=== PATIENT | male | born 1930 | race Caucasian/White ===

== ENCOUNTER 2019-05-31 14:07 | Inpatient (IN) | payer OTHER ==
--- NOTE | 2019-05-31 14:22 | ED ---
Neurological HPI - HPI Summary HPI Summary: This patient is a 42 year old male brought in by EMS presenting to [facility] with a chief complaint of possible stroke first noted 40 minutes ago. Nursing staff reports aphasia, slurred speech, and confusion. He lives in assisted living and states he first noted symptoms yesterday evening, his last known well. He states he noticed he was off when he kept missing the cue ball while playing billiards. He reports headache. 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 Patient arrived to ED 1409, seen by ED Provider and Neurologist Dr. Holden simultaneously at 1410, and taken to CT at 1411. Pt denies any fever, chills, erythema of eyes, sore throat, CP, SOB, cough, abdominal pain, N/V, dysuria, hematuria, myalgia, edema, rash, or dizziness. - History of Current Complaint Stated Complaint: NASIM MOORE Hx Obtained From: Patient, EMS Onset/Duration: Started minutes ago, Started days ago - Allergy/Home Medications Allergies/Adverse Reactions: Allergies Allergy/AdvReac Type Severity Reaction Status Date / Time Unable to Assess Allergy Verified 05/31/19 14:30 Home Medications: Home Medications Aspirin EC TAB* [Ecotrin EC Low Dose 81 MG*] 81 mg PO DAILY 05/31/19 [History Confirmed 05/31/19] Atorvastatin* [Lipitor*] 10 mg PO DAILY 05/31/19 [History Confirmed 05/31/19] Calcium Carbonate [Calcium] 1,000 mg PO DAILY 05/31/19 [History Confirmed ] Ferrous Sulfate TAB* 325 mg PO EVERY OTHER DAY 05/31/19 [History Confirmed 05/31] Levothyroxine TAB* [Synthroid TAB*] 37.5 mcg PO QAM 05/31/19 [History Confirmed 05/31/19] Metoprolol Tartrate TAB* [Lopressor TAB*] 25 mg PO BID 05/31/19 [History Confirmed 05/31/19] PMH/Surg Hx/FS Hx/Imm Hx Cardiovascular History: Reports: Hx Hypertension EENT History: Denies: Hx Deafness - Family History Known Family History: Positive: Unknown - Difficulty answering due to Aphasia/ Nasim Arnett - Social History Occupation: Retired Lives: Assisted Living Review of Systems Negative: Fever, Chills Negative: Erythema Negative: Sore Throat Negative: Chest Pain Negative: Shortness Of Breath, Cough Negative: Abdominal Pain, Vomiting, Nausea Negative: dysuria, hematuria Negative: Myalgia, Edema Negative: Rash Neurological: Other - Aphasia, Confusion. Neg: Dizziness Positive: Headache, Slurred Speech All Other Systems Reviewed And Are Negative: No Physical Exam - Summary Physical Exam Summary: Constitutional: Well-developed, Well-nourished, Alert. (-) Distressed Skin: Warm, Dry HENT: Normocephalic; Atraumatic Eyes: Conjunctiva normal Neck: Musculoskeletal ROM normal neck. (-) JVD, (-) Stridor, (-) Tracheal deviation Cardio: Rhythm regular, rate normal, Heart sounds normal; Intact distal pulses. Radial pulses are 2+ and symmetric. (-) Murmur Pulmonary/Chest wall: Effort normal. (-) Respiratory distress, (-) Wheezes, (-) Rales Abd: Soft. (-) Tenderness, (-) Distension, (-) Guarding, (-) Rebound Musculoskeletal: (-) Edema Lymph: (-) Cervical adenopathy Neuro: Alert, Oriented x3, Strength normal, Cranial nerves II-XII are grossly intact. (-) Dysmetria, (-) Nystagmus, (-) Ataxia by finger to nose testing, (-) Sensory deficit. Psych: Mood and affect Normal Triage Information Reviewed: Yes Vital Signs On Initial Exam: Temp Pulse Resp BP Pulse Ox 99.2 F 70 15 146/79 98 05/31/19 14:17 05/31/19 15:06 05/31/19 15:06 05/31/19 15:06 05/31/19 15:00 Vital Signs Reviewed: Yes Procedures - Sedation Patient Received Moderate/Deep Sedation with Procedure: No Diagnostics - Laboratory Result Diagrams: 05/31/19 14:26 Lab Statement: Any lab studies that have been ordered have been reviewed, and results considered in the medical decision making process. - Radiology CXR Radiology Interpretation Completed By: Radiologist Summary of Radiographic Findings: No active cardiopulmonary disease. ED Provider has reviewed this report. - CT Brain CT Interpretation Completed By: Radiologist Summary of CT Findings: No acute intracranial pathology. Chronic small vessel ischemic change. ED Provider has reviewed this report. Head CTA CT Interpretation Completed By: Radiologist Summary of CT Findings: No acute findings. ED Provider has reviewed this report. - EKG 1427 Cardiac Rate: NL - 76 BPM EKG Rhythm: Sinus Rhythm Ectopy: PVCs Summary of EKG Findings: No STEMI. ED Physician has reviewed and interpreted this report. NIH Scale - NIH Scale Level of Consciousness: Alert/Keenly Responsive Ask Patient the Month and His/Her Age: Both Correct Ask Pt to Open/Close Eyes and Scratch Finisher/Release Non-Paretic Hand: Both Correctly Best Gaze (Only Horizontal Eye Movement): Normal Visual Field Testing: No Visual Loss Facial Paresis-Pt to Smile & Close Eyes or Grimace Symmetry: Normal/Symmetrical Motor Function - Right Arm: No Drift-Holds 10 Seconds Motor Function - Left Arm: No Drift-Holds 10 Seconds Motor Function - Right Leg: No Drift-Holds 10 Seconds Motor Function - Left Leg: No Drift-Holds 10 Seconds Limb Ataxia-Must be out of Proportion to Weakness Present: Absent Sensory (Use Pinprick to Test Arms/Legs/Trunk/Face): Normal Best Language (Describe Picture, Name Items): Some Loss Dysarthria (Read Several Words): Slurs Some Words Extinction and Inattention: No Abnormality Total Score: 2 Re-Evaluation - Re-Evaluation First Eval Re-Evaluation Time: 16:09 Change: Unchanged Course/Dx - Course Course Of Treatment: This patient is a 42 year old male brought in by EMS presenting to [facility] with a chief complaint of possible stroke first noted 40 minutes ago, although his last known well was yesterday evening. In consultation with Dr. Holden, Neurology, he ruled out TPA due to his last known well time. 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 Patient arrived to ED 1409, seen by ED Provider and Dr. Holden simultaneously at 1410, and taken to CT at 1411. Brain CT reveals No acute intracranial pathology. Chronic small vessel ischemic change. Discussed Head CTA with Dr. Salgado, Radiology, and he stated there were no acute findings. NIH score of 2. Dr. Street, Hospitalist, accepted the patient for admission. Plan for admission was discussed with the patient and he was agreeable with this plan. - Diagnoses Provider Diagnoses: Acute CVA (cerebrovascular accident) - Physician Notifications Discussed Care Of Patient With: Naeem Holden - Neurology Instructed by Provider To: MD Will See In ED - Critical Care Time Critical Care Time: 30-74 min - 45 Mins Discharge ED - Sign-Out/Discharge Documenting (check all that apply): Patient Departure - Admission - Discharge Plan Condition: Stable Disposition: ADMITTED TO [facility] Referrals: Geneva BARRY,Rosi Cm [Nurse Practitioner] - - Attestation Statements Document Initiated by Scribe: Yes Documenting Scribe: Omkar Aponte Provider For Whom Scribe is Documenting (Include Credential): Jarett Hernandez MD Scribe Attestation: IOmkar, scribed for Jarett Hernandez MD on 05/31/19 at 1614. Status of Scribe Document: Ready
[2019-05-31 14:37] LABS: ABS Eosinophils 0.1 10^3/ul (0-0.6); ABS Lymphocytes 1.1 10^3/ul (1.0-4.8); ABS Monocytes 0.7 10^3/ul (0-0.8); ABS Neutrophils 3.9 10^3/ul (1.5-7.7); Eosinophil % 1.7 %; Hematocrit 39 % (42-52); Hemoglobin 13.4 g/dL (14.0-18.0); Lymphocyte % 19.3 %; Mean Corpuscular HGB Conc 35 g/dL (31-36); Mean Corpuscular Hemoglobin 31 pg (27-31); Mean Corpuscular Volume 90 fL (80-94); Mean Platelet Volume 8.8 fL (7.4-10.4); Nucleated Red Blood Cells % 0.1; Platelet Count 185 10^3/uL (150-450); Red Blood Count 4.32 10^6 /uL (4.18-5.48); Red Cell Distribution Width 13 % (10-15); White Blood Count 5.9 10^3/uL (3.5-10.8)
[2019-05-31] MEDS ORDERED: Aspirin 81 mg CHEW TAB* 81 MG TAB.CHEW PO ONE (14:40)
[2019-05-31 14:46] LABS: Activated Partial Thrombo Time 33.7 seconds (26.0-38.0); INR 0.96 (0.82-1.09)
[2019-05-31 14:54] LABS: Troponin I 0.01 ng/mL (<0.03)
[2019-05-31 14:55] LABS: Albumin 4.2 g/dL (3.2-5.2); Albumin/Globulin Ratio 1.6 (1-3); BUN/Creatinine Ratio 17.9 (8-20); Calcium 9.3 mg/dL (8.6-10.3); EGFR Non-African American 47.9 (>60); Globulin 2.7 g/dL (2-4); HDL Cholesterol 37.8 mg/dL; Potassium 4.1 mmol/L (3.5-5.0); Total Bilirubin 0.5 mg/dL (0.2-1.0); Total Protein 6.9 g/dL (6.4-8.9)
[2019-05-31] MEDS ORDERED: Iodixanol* (CONTRAST) 320 MG/ML 100 ML SDV IV ONE (15:18)
--- NOTE | 2019-05-31 17:03 | CONS ---
CC: [facility], [place], [place] * NEUROLOGY CONSULTATION: DATE OF CONSULT: 05/31/19 LOCATION: He is in the emergency room. REFERRING PHYSICIAN: Dr. Hernandez. CHIEF COMPLAINT: Aphasia. HISTORY OF PRESENT ILLNESS: Prabhu Osborn is an 89-year-old, presumptively right - handed man, who was brought in by ambulance when he developed difficulty with language. He apparently lives in a senior apartment independently and his last known well is unclear. He is accompanied by his son, Franco, who is developmentally disabled. Franco feels that he was able to express himself normally last night and I cannot determine if there was a last known well since waking this morning. As best as I can tell from the history, he was noted to be aphasic when Franco saw him first thing this morning. Therefore, last known well was presumptively last night. Prabhu repeatedly tries to express himself in the stretcher in the emergency room hallway. He had great difficulty following commands or producing any sentences. As time has gone by, he has been showing some level of improvement with occasionally a full fluent sentence, but often getting very stuck on producing individual words. We have no prior medical records in our hospital system as he has never been here before and we have no laboratory values. He says he takes medications at home, but he cannot name them. He says he does not take aspirin and he is not allergic to any medications. His primary care is the [facility] here in [place]. ROS: He denies headache or chest pain. He denies pain anywhere. PHYSICAL EXAM: He is well nourished and well hydrated. Temperature is 99.2, blood pressure 182/90, heart rate 84 and in sinus with frequent ectopic beats on the monitor. Respiratory rate is 12 and oxygen saturation is 97% on room air. Heart tones sound normal. I do not hear any cervical bruits. There is no evidence of head trauma. Oral mucosa is moist. Neurological Exam: Eye movements are normal. Pupils react equally from 4 down to 2 mm. Visual basurto appear full to confrontation, although it is difficult to get him to fixate his gaze consistently. Funduscopic exam reveals some arteriolar tortuosity, but no embolic phenomenon or hemorrhages. Facial musculature is symmetric. Facial sensation to light touch is symmetric. Palate rises symmetrically, tongue protrudes in the midline, and there is no dysarthria. Motor exam reveals no drift of any limb. He has intact strength in all limbs. Finger taps in the hands are equal and symmetric. I cannot get him to understand [id number] maneuver to perform it properly. Sensory exam to light touch is intact in all limbs. I am not able to get him to understand command for double simultaneous stimulation. He is quite aphasic and does not understand all questions either, which have to be repeated. DIAGNOSTIC STUDIES/LAB DATA: He had a CT scan of the brain, which I reviewed and it reveals some atrophy and perhaps some chronic subcortical low density, but no evidence of acute infarction or hemorrhages and no evidence of old infarctions. So far, laboratory data back includes a CBC which is normal, other than a borderline anemia with a hemoglobin of 13.4. Other laboratory studies are still pending. 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 Last well known is uncertain and so I do not feel he is a tPA candidate. His NIH Score calculated to be 4, losing 2 points on loss of consciousness commands task and 2 points on aphasia. Given that we do not know his past medical history or his renal function, I would hold off on a CT angiogram, but that will be next provided that his renal function is adequate. If he does have a large-vessel occlusion, then we will contact the [facility] for input. If he does not show a large-vessel occlusion, he will be admitted for further workup here. Very often isolated aphasia as a cerebrovascular event is cardioembolic and so that will certainly be looked for. For now, I have asked his nurse to give him aspirin 324 mg. We will monitor his blood pressure for now and allow permissive hypertension. Further recommended depend upon his hospital course and the results of his studies. Discussed my impression with Dr. Hernandez. I have spoken with his son, Franco, who is clearly developmentally delayed. 60 minutes was spent in the ER with multiple evaluations of the patient and multiple conversations with providers, family, and EMT's. [id number]/[facility] #: [id number] JOSE ALFREDO
[2019-05-31 17:07] LABS: Urine Appearance Clear; Urine Bilirubin Negative (Negative); Urine Blood Negative (Negative); Urine Color Yellow; Urine Glucose Negative (Negative); Urine Ketones Negative (Negative); Urine Nitrite Negative (Negative); Urine Protein Negative (Negative); Urine Specific Gravity 1.033 (1.010-1.030); Urine Urobilinogen Negative (Negative)
[2019-05-31] MEDS: NS 0.9% 1000 ML** 1,000 ML IV SCH (19:16)
[2019-05-31] MEDS ORDERED: Metoprolol Tartrate TAB* 25 MG PO SCH (21:00)
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
[2019-06-01 07:09] LABS: ABS Eosinophils 0.1 10^3/ul (0-0.6); ABS Lymphocytes 0.7 10^3/ul (1.0-4.8); ABS Monocytes 0.7 10^3/ul (0-0.8); ABS Neutrophils 5.3 10^3/ul (1.5-7.7); Eosinophil % 1.2 %; Hematocrit 32 % (42-52); Hemoglobin 11.2 g/dL (14.0-18.0); Mean Corpuscular HGB Conc 35 g/dL (31-36); Mean Corpuscular Hemoglobin 31 pg (27-31); Mean Corpuscular Volume 90 fL (80-94); Mean Platelet Volume 8.9 fL (7.4-10.4); Platelet Count 143 10^3/uL (150-450); Red Blood Count 3.58 10^6 /uL (4.18-5.48); Red Cell Distribution Width 13 % (10-15); White Blood Count 6.8 10^3/uL (3.5-10.8)
[2019-06-01 07:25] LABS: BUN/Creatinine Ratio 22.1 (8-20); Calcium 8.4 mg/dL (8.6-10.3); EGFR Non-African American 56.2 (>60); Potassium 3.7 mmol/L (3.5-5.0)
[2019-06-01] MEDS ORDERED: Pneumococcal *Vac Polyvalent 0.5 ML VIAL IM ONE (09:00)
[2019-06-01] MEDS: Atorvastatin* 10 MG TAB PO SCH (09:17)
[2019-06-01] MEDS: NS 0.9% 1000 ML** 1,000 ML IV SCH (09:17)
[2019-06-01] MEDS: Aspirin 81 mg CHEW TAB* 81 MG TAB.CHEW PO SCH (09:18)
--- NOTE | 2019-06-01 10:08 | CONS ---
NEUROLOGY FOLLOWUP CONSULT: DATE OF FOLLOWUP: 06/01/19 LOCATION: He is an inpatient in room 450. HOSPITALIST: Dr. Amilcar Street. CHIEF COMPLAINT: Aphasia. INTERVAL HISTORY: Since yesterday, Mr. Osborn feels better. He is clearly able to communicate better. He denies problems with choking or swallowing. He does not have any headache. He denies problems with vision. MEDICATIONS: Reviewed and he has been started on: 1. Metoprolol 25 mg twice per day last evening. 2. Remains on aspirin 81 mg p.o. daily. 3. Lipitor was started 10 mg p.o. daily. He has received a Pneumovax vaccine. PHYSICAL EXAMINATION: He is well-nourished and well-hydrated. Temperature most recently 98.5, most recent blood pressure only this morning was 109/51, heart rate is in the 70s and regular with occasional ectopic beats. Respiratory rate is 14 and oxygen saturation is 95% on room air. Heart tones sound normal. There are no murmurs. Neck is supple. There are no cervical bruits. Neurological Exam: Facial musculature is symmetric. Eye movements are full. Visual basurto are suggestive of possible right inferior quadrantanopsia. There is impersistence of gaze, so it is hard to be certain. He has normal strength in the upper extremities. There is no dysarthria. DIAGNOSTIC STUDIES/LAB DATA: Laboratory data from today is notable for a chemistry profile with a creatinine of 1.22, which is improved from yesterday when it was 1.40. Cholesterol yesterday was 116, LDL 57. The rest of the chemistries are unremarkable. CBC this morning is unremarkable other than the slight drop in hemoglobin to 11.2 from 13.4 yesterday. Platelet count is borderline at 143,000 down from [address] angiogram was reviewed personally by myself and was interpreted by Dr. Vergara as unremarkable without significant large vessel stenosis. IMPRESSION AND PLAN: Impression is that of a dominant hemisphere cerebrovascular accident, which is improved. I think his blood pressure should be allowed to run a little bit higher and so I am going to put a hold on his metoprolol. I spoke with Dr. Street briefly earlier and an MRI scan of the brain is pending as is a transthoracic echocardiogram with bubble study. If he does in fact have a branch middle cerebral artery infarction then a cardioembolic source would be high on the differential. MRI scan should help with that as well as of course his cardiac monitoring and echocardiogram. I agree with statin therapy and at this point aspirin monotherapy. If we do not find a cardioembolic source, I may recommend dual-antiplatelet therapy. I have put an order for a speech therapy consultation as well. I will continue to follow him along with you. [id number]/[facility] #: [id number] JOSE ALFREDO
--- NOTE | 2019-06-01 15:46 | ECHO ---
*[facility]* [place] [address] Fax #: [phone] Transthoracic Echocardiogram Patient: Prabhu Osborn : 1930 Study Date: 06/01/2019 Age: 89 Gender: M HR: 84 bpm Height: 67 in /170.2 cm BSA: 1.66 m^2 Weight: 125.7 lb /57.2 kg BMI: 19.7 kg/m^2 *Vehicle Operator Technician: * Jud Godwin RDCS RN *Referring Physician: * Amilcar Street *Reading Physician: * Darrel Cagle MD Indications: CVA. History: Risk factors: Hypertension. Dyslipidemia. Conclusions Summary: - Left ventricle: The cavity size is normal. Wall thickness is mildly increased. Systolic function is normal. The estimated ejection fraction is 60-65%. Wall motion is normal; there are no regional wall motion abnormalities. - Right ventricle: The cavity size is normal. Systolic function is normal. - Right atrium: The atrium is mildly dilated. - Atrial septum: Bubble study was negative on Images 112-113. - Mitral valve: There is mild regurgitation. - Tricuspid valve: There is mild-moderate regurgitation. - Pulmonary arteries: Systolic pressure is mildly increased, estimated to be 39 mm Hg. Recommendations: None prior for comparison at time of interpretation. Study data: Transthoracic echocardiogram. Procedure: Transthoracic echocardiography was performed. Image quality was fair. Intravenous agitated saline was administered. A bubble study was performed. Complete 2D, spectral Doppler, and color flow Doppler. Location: Bedside. Patient status: Inpatient. Patient room number: 450-02. Rhythm: Normal sinus rhythm with PVC's. Findings Left ventricle: The cavity size is normal. Wall thickness is mildly increased. Systolic function is normal. The estimated ejection fraction is 60-65%. Wall motion is normal; there are no regional wall motion abnormalities. Doppler parameters are consistent with abnormal left ventricular relaxation (grade 1 diastolic dysfunction). Right ventricle: The cavity size is normal. Systolic function is normal. Right atrium: The atrium is mildly dilated. Atrial septum: No defect or patent foramen ovale is identified. Bubble study was negative on Images 112-113. Mitral valve: The leaflets are mildly thickened. There is no evidence of stenosis. There is mild regurgitation. Aortic valve: The valve is trileaflet. The leaflets are mildly thickened. There is no evidence of stenosis. There is trace regurgitation. Tricuspid valve: The valve is structurally normal. There is no evidence of stenosis. There is mild-moderate regurgitation. Pulmonic valve: Not well visualized. There is no evidence of stenosis. There is trace regurgitation. Aorta: Ascending aorta: The ascending aorta is not well visualized. Aortic arch: The aortic arch is not dilated. The aortic root appears normal. Pericardium: There is no pericardial effusion. Pulmonary arteries: Not well visualized. Systolic pressure is mildly increased, estimated to be 39 mm Hg. Systemic veins: Inferior vena cava: The vessel is normal in size. There is (>= 50%) respiratory change in the IVC dimension. Measurements Left ventricle Value Ref Aortic valve continued Value Ref KITTY, LAX 4.3 cm 4.2 - 5.8 Peak v, S 1.21 m/sec ----- ESD, LAX 2.7 cm 2.5 - 4.0 VTI, S 26.0 cm ----- FS, LAX 37 % 25 - 43 Mean grad, S 4.0 mm Hg ----- PW, ED (H) 1.1 cm 0.6 - 1.0 Peak grad, S 6.0 mm Hg ----- IVS/PW, ED 1.01 LVOT/AV, VTI ratio 0.58 ----- E', lat haresh, TDI (L) 6.2 cm/sec >=10.0 E/e', lat haresh, 14 Mitral valve Value Ref TDI Peak E 0.86 m/sec ----- E', med haresh, TDI 7.2 cm/sec >=7.0 Peak A 0.74 m/sec - ---- E/e', med haresh, 12 Decel time 180 ms ---- - TDI Peak grad, D 3.0 mm Hg ----- E', avg, TDI 6.7 cm/sec Peak E/A ratio 1.2 ---- - E/e', avg, TDI 13 <=14 Pulmonic valve Value Ref LVOT Value Ref Peak v, S 0.88 m/sec ----- Peak du, S 0.72 m/sec Peak grad, S 3.0 mm Hg ----- VTI, S 15.2 cm Mean grad, S 1 mm Hg Tricuspid valve Value Ref TR peak v (H) 3 m/sec <=2.8 Ventricular septum Value Ref Peak RV-RA grad, S 36 mm Hg ----- IVS, ED (H) 1.1 cm 0.6 - 1.0 Aortic root Value Ref Right ventricle Value Ref Root diam 3.3 cm <3.9 KITTY, LAX 3.2 cm KITTY minor ax, A4C 3.5 cm 1.9 - 3.5 Ascending aorta Value Ref mid AAo AP diam, S 2.9 cm ----- Pressure, S 39 mm Hg Aortic arch Value Ref Left atrium Value Ref Arch diam 2.3 cm ----- AP dim, ES 3.70 cm 3.00 - 4.00 Decending aorta Value Ref ML dim, A4C 5.4 cm Chyna peak du 0.6 m/sec ----- SI dim, A4C 5.5 cm Vol/bsa, ES, 1-p 33 ml/m^2 12 - 37 Pulmonary artery Value Ref A4C Pressure, S 39.0 mm Hg ----- Vol/bsa, ES, A/L (H) 41 ml/m^2 16 - 34 Inferior vena cava Value Ref Right atrium Value Ref Diam 1.8 cm ----- ML dim, ES, A4C (H) 4.6 cm 2.6 - 4.4 SI dim, ES, A4C 5.0 cm 3.4 - 5.3 Estimated RAP 3 mm Hg Aortic valve Value Ref Haresh diam, ED 2.0 cm Legend: (L) and (H) zainab values outside specified reference range. Prepared and electronically signed by Darrel Cagle MD 06/01/2019 15:46
--- NOTE | 2019-06-01 18:29 | PN ---
Subjective Date of Service: 06/01/19 Interval History: doing remarkably better. Speech much more clear with appropriate content. [facility]: he has history of an endovascular AAA graft of some sort but few details present. Reportedly radiology department is requesting more specific information before proceeding to an MRI Passed swallow eval ECHO: pEF, bubble study negative, no observed clot. no reportedly Afib on telemetry. Update son at bedside and spoke with daughter twice via phone. Objective Active Medications: Aspirin (Aspirin 81 Mg Chew Tab*) 324 mg PO DAILY [facility] Last Admin: 06/01/19 09:18 Dose: 324 mg Atorvastatin Calcium (Lipitor*) 10 mg PO DAILY [facility] Last Admin: 06/01/19 09:17 Dose: 10 mg Sodium Chloride (Ns 0.9% 1000 Ml) 1,000 mls @ 100 mls/hr IV PER RATE [facility] Last Admin: 06/01/19 09:17 Dose: 100 mls/hr Vital Signs - 8 hr 06/01/19 06/01/19 12:35 15:49 Temperature 98.3 F 97.7 F Pulse Rate 66 69 Respiratory 20 17 Rate Blood Pressure 133/65 125/68 (mmHg) O2 Sat by Pulse 97 99 Oximetry Oxygen Devices in Use Now: None Appearance: NAD, sitting in bed. some muscle wasting. Eyes: No Scleral Icterus Ears/Nose/Mouth/Throat: NL Teeth, Lips, Gums Respiratory: Symmetrical Chest Expansion and Respiratory Effort, Clear to Auscultation Cardiovascular: NL Sounds; No Murmurs; No JVD Abdominal: NL Sounds; No Tenderness; No Distention Extremities: No Edema Skin: No Rash or Ulcers Neurological: Alert and Oriented x 3, - - expressive aphasia which had been prominent is now minimal. CN intact. sensation and strength intact. Nutrition: Taking PO's Result Diagrams: 06/01/19 06:40 06/01/19 06:38 Additional Lab and Data: Laboratory Results - last 24 hr 06/01/19 06/01/19 06:38 06:40 WBC 6.8 RBC 3.58 L Hgb 11.2 L Hct 32 L MCV 90 MCH 31 MCHC 35 RDW 13 Plt Count 143 L MPV 8.9 Neut % (Auto) 77.6 Lymph % (Auto) 10.0 [place] % (Auto) 10.8 Eos % (Auto) 1.2 Baso % (Auto) 0.4 Absolute Neuts (auto) 5.3 Absolute Lymphs (auto) 0.7 L Absolute Monos (auto) 0.7 Absolute Eos (auto) 0.1 Absolute Basos (auto) 0.0 Absolute Nucleated RBC 0.0 Nucleated RBC % 0.0 Sodium 135 Potassium 3.7 Chloride 104 Carbon Dioxide 27 Anion Gap 4 BUN 27 H Creatinine 1.22 H Est GFR ( Amer) 68.0 Est GFR (Non-Af Amer) 56.2 BUN/Creatinine Ratio 22.1 H Glucose 89 Calcium 8.4 L Microbiology and Other Data: 89 yo male PMH HTN, hypothyroidism, 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 MRI pending. Assess/Plan/Problems-Billing Assessment: - Patient Problems (1) CVA (cerebral vascular accident) Current Visit: Yes Status: Acute Code(s): I63.9 - CEREBRAL INFARCTION, UNSPECIFIED SNOMED Code(s): 623665776 Comment: likely MCA territory emoblic stroke but still waiting on MRI - radiology wants more specfic information about his endovascular AAA graft expressive aphasia markedly improved. passed swallow eval. Appreciate Neurology recs. Continue at increased dose of aspirin. 324mg ECHO with negative bubble study. statin CTA H/N without significant stenosis PT: still a 1 assist and not safe for discharge home alone OT (2) HTN (hypertension) Current Visit: Yes Status: Acute Code(s): I10 - ESSENTIAL (PRIMARY) HYPERTENSION SNOMED Code(s): 75143941 Comment: on metoprolol 25mg BID at home - this was held this AM to allow permissive HTN per neurology. (3) Hypothyroid Current Visit: Yes Status: Acute Code(s): E03.9 - HYPOTHYROIDISM, UNSPECIFIED SNOMED Code(s): 34304508 Comment: continue synthroid Status and Disposition: medicine inpatient. May need rehab. awaiting MRI.
[2019-06-02] MEDS: NS 0.9% 1000 ML** 1,000 ML IV SCH (00:44)
[2019-06-02 07:04] LABS: ABS Eosinophils 0.2 10^3/ul (0-0.6); ABS Lymphocytes 0.5 10^3/ul (1.0-4.8); ABS Monocytes 0.7 10^3/ul (0-0.8); ABS Neutrophils 5.3 10^3/ul (1.5-7.7); Eosinophil % 2.3 %; Hematocrit 33 % (42-52); Hemoglobin 11.7 g/dL (14.0-18.0); Lymphocyte % 7.8 %; Mean Corpuscular HGB Conc 36 g/dL (31-36); Mean Corpuscular Hemoglobin 32 pg (27-31); Mean Corpuscular Volume 89 fL (80-94); Mean Platelet Volume 8.8 fL (7.4-10.4); Platelet Count 132 10^3/uL (150-450); Red Blood Count 3.68 10^6 /uL (4.18-5.48); Red Cell Distribution Width 13 % (10-15); White Blood Count 6.7 10^3/uL (3.5-10.8)
[2019-06-02 07:16] LABS: Calcium 8.4 mg/dL (8.6-10.3); EGFR African American 75.8 (>60); EGFR Non-African American 62.7 (>60); Potassium 4.1 mmol/L (3.5-5.0)
[2019-06-02] MEDS: Atorvastatin* 10 MG TAB PO SCH (08:44)
[2019-06-02] MEDS: Aspirin 81 mg CHEW TAB* 81 MG TAB.CHEW PO SCH (08:44)
[2019-06-02] MEDS ORDERED: Aspirin 81 mg CHEW TAB* 81 MG TAB.CHEW PO SCH (09:00)
[2019-06-02] MEDS: Clopidogrel TAB* 75 MG PO SCH (09:46)
--- NOTE | 2019-06-02 09:57 | PN ---
Subjective Date of Service: 06/02/19 Interval History: Doing much better than admission. He believes his speech is back to baseline. He notes no other deficits other than what is normal for him, which he describes as "slowing down lately," but still has remained independent at [employer]. He has no complaints. Reviewed care with his nurse, Faustino. Objective Active Medications: Aspirin (Aspirin 81 Mg Chew Tab*) 81 mg PO DAILY [facility] Atorvastatin Calcium (Lipitor*) 10 mg PO DAILY [facility] Last Admin: 06/02/19 08:44 Dose: 10 mg Clopidogrel Bisulfate (Plavix Tab*) 75 mg PO DAILY [facility] Last Admin: 06/02/19 09:46 Dose: 75 mg Vital Signs - 8 hr 06/02/19 06/02/19 03:15 08:46 Temperature 99.1 F Pulse Rate 74 Respiratory 12 18 Rate Blood Pressure 125/68 (mmHg) O2 Sat by Pulse 98 Oximetry Oxygen Devices in Use Now: None Appearance: alert, well appearing, in good spirits Eyes: No Scleral Icterus Ears/Nose/Mouth/Throat: - - edentulous Neck: NL Appearance and Movements; NL JVP Respiratory: Symmetrical Chest Expansion and Respiratory Effort Cardiovascular: NL Sounds; No Murmurs; No JVD, RRR Abdominal: NL Sounds; No Tenderness; No Distention Lymphatic: No Cervical Adenopathy Extremities: No Edema Skin: - - SKs across back Neurological: Alert and Oriented x 3, NL Muscle Strength and Tone, - - speech is fluid and clear and accurate, face is symmetric, coordination is in tact, no pronator drift Result Diagrams: 06/02/19 06:34 06/02/19 06:34 Additional Lab and Data: Laboratory Results - last 24 hr 06/01/19 06/01/19 06:38 06:40 WBC 6.8 RBC 3.58 L Hgb 11.2 L Hct 32 L MCV 90 MCH 31 MCHC 35 RDW 13 Plt Count 143 L MPV 8.9 Neut % (Auto) 77.6 Lymph % (Auto) 10.0 [place] % (Auto) 10.8 Eos % (Auto) 1.2 Baso % (Auto) 0.4 Absolute Neuts (auto) 5.3 Absolute Lymphs (auto) 0.7 L Absolute Monos (auto) 0.7 Absolute Eos (auto) 0.1 Absolute Basos (auto) 0.0 Absolute Nucleated RBC 0.0 Nucleated RBC % 0.0 Sodium 135 Potassium 3.7 Chloride 104 Carbon Dioxide 27 Anion Gap 4 BUN 27 H Creatinine 1.22 H Est GFR ( Amer) 68.0 Est GFR (Non-Af Amer) 56.2 BUN/Creatinine Ratio 22.1 H Glucose 89 Calcium 8.4 L Microbiology and Other Data: 89 yo male PMH HTN, hypothyroidism, 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 MRI pending. Assess/Plan/Problems-Billing Assessment: This is an 89 year old man with history of an endovascular abdominal aortic graft who presented to the ED on 05/31 with expressive aphasia, was a code banda (NIH 4, not a tpa candidate) and initial CT brain negative for acute CVA - Patient Problems (1) CVA (cerebral vascular accident) Current Visit: Yes Status: Acute Code(s): I63.9 - CEREBRAL INFARCTION, UNSPECIFIED SNOMED Code(s): 058890337 Comment: likely MCA territory emoblic stroke but still waiting on MRI - radiology wants more specfic information about his endovascular AAA graft no events on telemetry expressive aphasia markedly improved. passed swallow eval. Appreciate Neurology recs--will add plavix and reduce ASA to 81mg daily ECHO with negative bubble study. statin CTA H/N without significant stenosis PT: still a 1 assist and not safe for discharge home alone (2) HTN (hypertension) Current Visit: Yes Status: Acute Code(s): I10 - ESSENTIAL (PRIMARY) HYPERTENSION SNOMED Code(s): 25984268 Comment: on metoprolol 25mg BID at home - continues to be on hold for permissive HTN; BP is acceptable off it (3) Hypothyroid Current Visit: Yes Status: Acute Code(s): E03.9 - HYPOTHYROIDISM, UNSPECIFIED SNOMED Code(s): 17554093 Comment: continue synthroid Status and Disposition: medicine inpatient. May need rehab. awaiting MRI.
--- NOTE | 2019-06-02 12:07 | PN ---
NEUROLOGICAL FOLLOWUP: DATE OF VISIT: 06/02/19. PATIENT OF: Dr. Chao. HISTORY: This is a neurological followup on this 89-year-old man status post stroke and expressive aphasia thought secondary to presumed stroke. His MRI scan is still pending. He has had an echo that showed no evidence of clot. He is just on aspirin monotherapy, Lipitor and I have just recommended that Plavix be added pending the MRI scan. Dr. Holden had talked about treating for possibly anticoagulation depending on what his MRI scan showed, but it has not been done yet. At least in the interim, he should be on aspirin and Plavix. Unless we find something that changes our game plan, he would be on the aspirin and Plavix for a month and then go back to just the aspirin monotherapy. PHYSICAL EXAM: On exam, temperature 99.1, pulse 74, respirations 18, blood pressure 125/68. He is alert and oriented with normal speech and comprehension. Cranial nerves II through XII were intact. Fundi were benign. Motor exam revealed normal tone and strength. Chest: Clear. Cardiovascular: Regular rate and rhythm. RECOMMENDATIONS: As above. Basically, he is status post the presumed stroke and should be on aspirin and Plavix unless there is evidence for a major risk for cardioembolic disease. Please call me if problems arise. Thank you for sharing his case. [id number]/[facility] #: [id number] JOSE ALFREDO
[2019-06-03 06:47] LABS: BUN/Creatinine Ratio 16.2 (8-20); Calcium 8.6 mg/dL (8.6-10.3); EGFR African American 75.8 (>60); EGFR Non-African American 62.7 (>60); Potassium 4.1 mmol/L (3.5-5.0)
[2019-06-03] MEDS: Clopidogrel TAB* 75 MG PO SCH (07:43)
[2019-06-03] MEDS: Atorvastatin* 10 MG TAB PO SCH (07:43)
[2019-06-03] MEDS: Aspirin 81 mg CHEW TAB* 81 MG TAB.CHEW PO SCH (07:43)
[2019-06-03 10:27] LABS: ABS Eosinophils 0.2 10^3/ul (0-0.6); ABS Lymphocytes 0.7 10^3/ul (1.0-4.8); ABS Monocytes 0.8 10^3/ul (0-0.8); ABS Neutrophils 4.6 10^3/ul (1.5-7.7); Eosinophil % 3.8 %; Hematocrit 36 % (42-52); Hemoglobin 12.2 g/dL (14.0-18.0); Lymphocyte % 10.6 %; Mean Corpuscular HGB Conc 34 g/dL (31-36); Mean Corpuscular Hemoglobin 31 pg (27-31); Mean Corpuscular Volume 91 fL (80-94); Mean Platelet Volume 9.3 fL (7.4-10.4); Nucleated Red Blood Cells % 0.1; Platelet Count 154 10^3/uL (150-450); Red Cell Distribution Width 13 % (10-15); White Blood Count 6.4 10^3/uL (3.5-10.8)
--- NOTE | 2019-06-03 11:25 | PN ---
Subjective Date of Service: 06/03/19 Interval History: Prabhu is feeling great today. He feels bored. He has no complaints. Objective Active Medications: Aspirin (Aspirin 81 Mg Chew Tab*) 81 mg PO DAILY [facility] Last Admin: 06/03/19 07:43 Dose: 81 mg Atorvastatin Calcium (Lipitor*) 10 mg PO DAILY [facility] Last Admin: 06/03/19 07:43 Dose: 10 mg Clopidogrel Bisulfate (Plavix Tab*) 75 mg PO DAILY [facility] Last Admin: 06/03/19 07:43 Dose: 75 mg Vital Signs - 8 hr 06/03/19 06/03/19 06/03/19 03:32 07:15 07:20 Temperature 97.5 F 98.1 F Pulse Rate 72 71 Respiratory 16 20 18 Rate Blood Pressure 131/81 141/75 (mmHg) O2 Sat by Pulse 97 98 Oximetry Oxygen Devices in Use Now: None Appearance: alert, sitting in the chair at the bedside Eyes: No Scleral Icterus Ears/Nose/Mouth/Throat: NL Teeth, Lips, Gums, - - edentulous Neck: NL Appearance and Movements; NL JVP Respiratory: Symmetrical Chest Expansion and Respiratory Effort Cardiovascular: NL Sounds; No Murmurs; No JVD, RRR Abdominal: NL Sounds; No Tenderness; No Distention Lymphatic: No Cervical Adenopathy Extremities: No Edema Skin: No Rash or Ulcers Neurological: Alert and Oriented x 3 Result Diagrams: 06/03/19 06:18 06/03/19 06:18 Additional Lab and Data: Laboratory Results - last 24 hr 06/01/19 06/01/19 06:38 06:40 WBC 6.8 RBC 3.58 L Hgb 11.2 L Hct 32 L MCV 90 MCH 31 MCHC 35 RDW 13 Plt Count 143 L MPV 8.9 Neut % (Auto) 77.6 Lymph % (Auto) 10.0 [place] % (Auto) 10.8 Eos % (Auto) 1.2 Baso % (Auto) 0.4 Absolute Neuts (auto) 5.3 Absolute Lymphs (auto) 0.7 L Absolute Monos (auto) 0.7 Absolute Eos (auto) 0.1 Absolute Basos (auto) 0.0 Absolute Nucleated RBC 0.0 Nucleated RBC % 0.0 Sodium 135 Potassium 3.7 Chloride 104 Carbon Dioxide 27 Anion Gap 4 BUN 27 H Creatinine 1.22 H Est GFR ( Amer) 68.0 Est GFR (Non-Af Amer) 56.2 BUN/Creatinine Ratio 22.1 H Glucose 89 Calcium 8.4 L Microbiology and Other Data: 89 yo male PMH HTN, hypothyroidism, 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 MRI pending. Assess/Plan/Problems-Billing Assessment: This is an 89 year old man with history of an endovascular abdominal aortic graft who presented to the ED on 05/31 with expressive aphasia, was a code banda (NIH 4, not a tpa candidate) and initial CT brain negative for acute CVA - Patient Problems (1) CVA (cerebral vascular accident) Current Visit: Yes Status: Acute Code(s): I63.9 - CEREBRAL INFARCTION, UNSPECIFIED SNOMED Code(s): 442317751 Comment: likely MCA territory emoblic stroke but still waiting on MRI - radiology wants more specfic information about his endovascular AAA graft no events on telemetry expressive aphasia markedly improved. passed swallow eval. Appreciate Neurology recs--aspirin + plavix ECHO with negative bubble study. statin CTA H/N without significant stenosis PT: impaired safety and impaired dynamic balance (2) HTN (hypertension) Current Visit: Yes Status: Acute Code(s): I10 - ESSENTIAL (PRIMARY) HYPERTENSION SNOMED Code(s): 79466569 Comment: on metoprolol 25mg BID at home - continues to be on hold for permissive HTN; BP is acceptable off it (3) Hypothyroid Current Visit: Yes Status: Acute Code(s): E03.9 - HYPOTHYROIDISM, UNSPECIFIED SNOMED Code(s): 84048040 Comment: continue synthroid Status and Disposition: medicine inpatient. May need rehab. awaiting MRI.
[2019-06-04 06:22] LABS: ABS Eosinophils 0.2 10^3/ul (0-0.6); ABS Lymphocytes 0.8 10^3/ul (1.0-4.8); ABS Monocytes 0.7 10^3/ul (0-0.8); ABS Neutrophils 4.1 10^3/ul (1.5-7.7); Eosinophil % 3.7 %; Hematocrit 38 % (42-52); Hemoglobin 13.2 g/dL (14.0-18.0); Lymphocyte % 14.3 %; Mean Corpuscular HGB Conc 35 g/dL (31-36); Mean Corpuscular Hemoglobin 31 pg (27-31); Mean Corpuscular Volume 90 fL (80-94); Mean Platelet Volume 8.8 fL (7.4-10.4); Nucleated Red Blood Cells % 0.1; Platelet Count 162 10^3/uL (150-450); Red Blood Count 4.22 10^6 /uL (4.18-5.48); Red Cell Distribution Width 13 % (10-15); White Blood Count 5.9 10^3/uL (3.5-10.8)
[2019-06-04 06:39] LABS: BUN/Creatinine Ratio 18.5 (8-20); Calcium 8.8 mg/dL (8.6-10.3); EGFR Non-African American 57.8 (>60); Potassium 4.2 mmol/L (3.5-5.0)
[2019-06-04] MEDS: Aspirin 81 mg CHEW TAB* 81 MG TAB.CHEW PO SCH (07:20)
[2019-06-04] MEDS: Clopidogrel TAB* 75 MG PO SCH (07:20)
[2019-06-04] MEDS: Atorvastatin* 10 MG TAB PO SCH (07:20)
[2019-06-04 12:59] VITALS: BP 157/75
--- NOTE | 2019-06-05 02:03 | PN ---
PROGRESS NOTE: DATE OF VISIT: 06/04/19. PATIENT OF: Dr. Chao and Dr. Holden.* HISTORY: This is an 89-year-old man who feels back to normal following an aphasic episode. MRI scan was unable to be obtained because of Radiology's concerns about prior procedure even when further information was provided. MEDICATIONS: Include aspirin and Plavix as well as Lipitor. PHYSICAL EXAMINATION: Temperature 97.6, pulse 84, respiratory rate 20, blood pressure 157/75. He is alert and oriented with normal speech and comprehension. Strength is 5/5 bilaterally. He had a normal brisk gait for an 89-year-old. DIAGNOSTIC STUDIES/LAB DATA: His echo showed no signs of clot. He has not had AFib while in hospital. His CBC today had a hematocrit of 38, but was otherwise unremarkable. His BMP had a creatinine of 1.19, sodium 134, otherwise unremarkable. I discussed this with Dr. Chao that it is hard to know whether his stroke was secondary to AFib or a cardioembolic event. We cannot get an MRI scan unless the MRI scan showed multiple acute strokes. It would be hard to know even on MRI scan whether this was embolic or not. Dr. Holden reasonably discussed this strongly as a possibility and I have recommended getting a 30- day event monitor with followup with Dr. Holden following the Holter. Thank you for sharing his case. [id number]/[facility] #: [id number] [facility]ITAL[facility]
--- NOTE | 2019-06-05 05:13 | DS ---
CC: Sneha Brown NP at the [facility] in [place]; Dr. Holden of Neurology * DISCHARGE SUMMARY: DATE OF ADMISSION: 05/31/19. DATE OF DISCHARGE: 06/04/19. PRINCIPAL DISCHARGE DIAGNOSIS: Acute cerebrovascular accident. SECONDARY DISCHARGE DIAGNOSES: 1. Hypertension. 2. Hyperlipidemia. 3. Hypothyroid. MEDICATIONS FOR DISCHARGE: 1. Metoprolol 25 mg b.i.d. 2. Levothyroxine 37.5 mcg daily. 3. Aspirin 81 mg daily. 4. Ferrous sulfate 325 mg every other day. 5. Calcium carbonate 1000 mg daily. 6. Plavix 75 mg daily. 7. Atorvastatin 40 mg daily. PHYSICAL EXAMINATION: At discharge, temperature 97.6, heart rate 84, respiratory rate 20, pulse ox 91% on room air, blood pressure 157/75. General: Alert, well- appearing elderly man, in no distress, sitting up in the chair. HEENT: Pupils are equal, round, reactive to light. Oral mucosa is moist. He is edentulous. Neck: No JVP. No adenopathy. Chest: He is in a regular rate and rhythm with no murmurs. His lungs are clear bilaterally. Abdomen: Soft, nontender, nondistended. Extremities: No edema, rashes or ulcers. Neurologic : His face is symmetric. He has no nystagmus. His strength is 5/5 in all extremities. His speech is fluent and accurate. His coordination is intact. His gait is steady and normal. PERTINENT IMAGING FINDINGS: On this admission, a head CTA performed on 05/31/19 , shows no acute occlusive disease, severe stenosis or aneurysm in the brain. No acute occlusive disease or severe stenosis of the neck. Intra and extracranial atherosclerotic disease. A brain CT on 05/31/19, showed no acute intracranial pathology and chronic small vessel ischemic changes. HOSPITAL COURSE BY PROBLEM: 1. 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 Mr. Osborn presented to the emergency department with aphasia on 05/31/19. A code banda was called in the emergency department and he was evaluated by Dr. Holden. Unfortunately, his last well known was uncertain, which excluded him from being a tPA candidate. He received aspirin 325 mg in the emergency department and he was admitted for further stroke workup. His initial CT was negative for acute stroke. A CTA was obtained when his renal function resolved, which showed no large vessel occlusion. He was started on Plavix in addition to aspirin since the stroke happened on aspirin 81 mg daily. He was monitored on telemetry and had no evidence of atrial fibrillation during this admission. An echocardiogram was negative for a PFO or thrombus. An MRI was ordered; however, Radiology was unable to complete the MRI due to the presence of an endovascular stent graft in Mr. Osborn's abdominal aorta. We obtained records from the [facility] regarding this graft and the radiology department did not feel that the graft was suitable for MRI. I discussed this with Dr. Gasca who agreed that the MRI would not likely exchange teller and we will continue to treat Mr. Osborn for a suspected CVA regardless of the MRI findings. He did think it was appropriate for Mr. Osborn to wear a Holter monitor for 30 days after discharge. I attempted to arrange this prior to discharge; however, given the upcoming holiday, the people who schedule and apply the Holter monitors from [facility] were not available today and tell me that this can only be done as an outpatient. I am recommending that this would be ordered by his outpatient primary care provider and I have also educated Mr. Osborn on our recommendation for a Holter monitor. He is being discharged on aspirin, Plavix, and an increase dose of his statin. He has worked with physical therapy and speech therapy, and his deficits have all resolved. I watched him work with physical therapy this morning and agree with the physical therapist assessment that he is safe for return to [facility] where he lives independently. 2. Hypertension. We allowed permissive hypertension while he was here. 3. Hyperlipidemia. His atorvastatin dose was increased as described above. 4. Disposition: Mr. Osborn is being discharged to home on 06/04/19 where he lives independently at [facility]. He understands the importance of following up with Dr. Holden and Sneha at the [facility]. His Plavix has been picked up at the employee pharmacy prior to discharge. CONDITION AT THE TIME OF DISCHARGE: Stable. [id number]/[facility] #: [id number] MTDD
--- NOTE | 2019-07-01 18:32 | HP ---
H&P (Free Text) History and Physical: ADDENDUM TO ORIGINAL H&P OF 05/31/19 REVIEW OF SYSTEMS: Unable to be reliably obtained given expressive aphasia and perseveration. Does deny chest pain or shortness of breath.
== END 2019-06-04 16:00 | disposition home or self-care (01) | DRG 66 ==
LOC: ED 14:07 → MEDTELE 17:48
PROVIDERS: ADMIT Internal Medicine; ATTEND Internal Medicine
DX: I63.89 Other cerebral infarction (principal); I10 Essential (primary) hypertension; E03.9 Hypothyroidism, unspecified; R47.01 Aphasia; R29.702 NIHSS score 2; E78.5 Hyperlipidemia, unspecified; Z87.891 Personal history of nicotine dependence; Z23 Encounter for immunization; Z79.82 Long term (current) use of aspirin; Z79.890 Hormone replacement therapy; Z79.02 Long term (current) use of antithrombotics/antiplatelets; Z79.899 Other long term (current) drug therapy
CPT/HCPCS: 36415; 70450; 70496; 70498; 71045; 80048; 80053; 80061; 81003; 83036; 83605; 84484; 85025; 85610; 85730; 90732; 93005; 93306; 99284; A9270-GY; G8978-GP-CH; G8979-GP-CH; G8980-GP-CH; Q9967